=== PATIENT | female | born 1975 | race Two or more races ===

== ENCOUNTER 2020-11-09 20:04 | Emergency (ER) | payer MEDICAID ==
[~2020-11-09] VITALS: Ht 165.1 cm; Wt 49.0 kg
--- NOTE | 2020-11-09 20:21 | NUR ---
ED Nurse Note: pt presents to ED c/o abd pain, pt has an old surgical site from lipoma and abscess removal at [facility] in september. pt was recommended to come from her PCP office due to no improvement of pain and increased edema upon evaluation. pt has been taking Bactrim without improvement of symptoms. LUQ abd dressing appears to be soiled with puss and blood. packing removed by ERMD and replaced with new iodoform dressing. pt reports taking ibuprofen for painm without much relief
[2020-11-09 20:30] VITALS: BP 106/56
[2020-11-09] MEDS ORDERED: cefTRIAXone 1 GM in NS 55 ML IVPB ONE (20:30)
--- NOTE | 2020-11-09 20:32 | Emergency Room Report ---
History of Present Illness General Chief Complaint: Abdominal Pain Source: Patient Present Illness HPI Patient is a 45-year-old female who presents for increased abdominal discomfort. Had recent surgical procedure for a lipoma at [facility] approximately 09/29 denies any vomiting or diarrhea. Had been recently taking Bactrim. Had recent open the wound with her doctor.Was noted to have increased area after wound was opened at recently yesterday. Denies any fever. Allergies: Coded Allergies: MORPHINE (Verified Allergy, Unknown, 11/09/20) COVID-19 Screening Contact w/high risk pt: No Experienced COVID-19 symptoms?: No COVID-19 Testing performed [employer]: Yes - 11/01/2020 COVID-19 Screening: Negative COVID-19 COVID-19 Testing Source: [facility] Patient History Past Medical History: see triage record Last Menstrual Period: october 04 2020 Reviewed Nursing Documentation: PMH: Agreed; PSxH: Agreed Nursing Documentation-[facility] Past Medical History: No Stated History Review of Systems All Other Systems: negative except mentioned in HPI Physical Exam Vital Signs Date Time Temp Pulse Resp B/P (MAP) Pulse Ox O2 Delivery O2 Flow Rate FiO2 11/09/20 20:04 97.7 79 18 106/56 (73) 96 Room Air Sp02 EP Interpretation: reviewed, normal General Appearance: normal inspection, well appearing, no apparent distress, alert, GCS 15 Head: atraumatic ENT: normal ENT inspection, hearing grossly normal, normal voice Neck: normal inspection, full range of motion, supple, no bony tend Respiratory: normal inspection, lungs clear, normal breath sounds, no respiratory distress, no retraction, no wheezing Cardiovascular #1: regular rate, rhythm, no edema Gastrointestinal: normal inspection, normal bowel sounds, non tender, soft, no guarding, no hernia Genitourinary: no CVA tenderness Musculoskeletal: normal inspection, back normal, normal range of motion Neurologic: alert, motor strength/tone normal, steam flattener III-XII nml as tested, oriented x3, responsive, speech normal, normal inspection Psychiatric: normal inspection, judgement/insight normal, mood/affect normal Skin: other - Erythema to the left lower abdomen near incision Medical Decision Making Diagnostic Impression: Primary Impression: Postoperative wound cellulitis ER Course Patient presented for abdominal pain. Differential diagnosis include was not limited to abscess, ulcer, bowel obstruction, wound infection among others. Because of complexity of patient's case laboratory tests and imaging studies were ordered. Patient was noted to have some erythema to the area of the wound which overall appears to be Minimally tender and somewhat itchy. Patient was packing was removed and changed. CT imaging showed changes consistent with patient's postoperative status as well as some abdominal wall cellulitis. Patient was given IV antibiotics in the emergency department. She was noted to have normal white blood count with no evidence of sepsis. Patient was given prescription for additional antibiotics and advised to follow-up with her surgeon. Patient was agreeable with discharge plan. The patient is advised to follow up with primary care doctor in 1-2 days. Patient is advised to return if any worsening condition or if any changes in status that are concerning. This report is dictated with [employer] filling [employer] software which may occasionally lead to discrepancies related to use of this software. Last Vital Signs Date Time Temp Pulse Resp B/P (MAP) Pulse Ox O2 Delivery O2 Flow Rate FiO2 11/09/20 20:04 97.7 79 18 106/56 (73) 96 Room Air Status: improved Disposition: HOME, SELF-CARE Scripts Hydrocodone Bit/Acetaminophen 5-325* (NORCO 5-325 TABLET*) 1 Each Tablet 1 TAB ORAL Q6H PRN for FOR PAIN, #10 TAB 0 Refills Prov: Saul Bhatia MD 11/09/20 Cephalexin* (KEFLEX*) 500 Mg Capsule 500 MG ORAL EVERY 6 HOURS, #40 CAP Prov: Saul Bhatia MD 11/09/20 Saul Bhatia MD Nov 09, 2020 20:32
[2020-11-09 21:05] LABS: APPEARANCE,URINE CLEAR; BASOPHILS % (AUTO) 1.2 % (0.0-2.0); BILIRUBIN, URINE NEGATIVE (NEGATIVE); COLOR,URINE YELLOW; EOSINOPHILS % (AUTO) 6.2 % (0.0-3.0); GLUCOSE, URINE (UA) NEGATIVE (NEGATIVE); HEMATOCRIT 36.5 % (37.0-47.0); HEMOGLOBIN 12.9 G/DL (12.0-16.0); KETONES,URINE NEGATIVE (NEGATIVE); LEUKOCYTE ESTERASE ,URINE NEGATIVE (NEGATIVE); LYMPHOCYTES % (AUTO) 27.5 % (20.0-45.0); MEAN CORPUSCULAR VOLUME 91 FL (80-99); MONOCYTES % (AUTO) 7.6 % (1.0-10.0); NEUTROPHILS % (AUTO) 57.5 % (45.0-75.0); NITRITE,URINE NEGATIVE (NEGATIVE); PH,URINE 6 (4.5-8.0); PLATELET COUNT 240 K/UL (150-450); PROTEIN,URINE NEGATIVE (NEGATIVE); RED BLOOD COUNT 3.99 M/UL (4.20-5.40); RED CELL DISTRIBUTION WIDTH 12.5 % (11.6-14.8); UROBILINOGEN,URINE NORMAL MG/DL (0.0-1.0)
[2020-11-09 21:14] LABS: ANION GAP 8 mmol/L (5-15); BLOOD UREA NITROGEN 11 mg/dL (7-18); CALCIUM 8.4 MG/DL (8.5-10.1); CARBON DIOXIDE 25 MMOL/L (21-32); CHLORIDE 106 MMOL/L (98-107); CREATININE 0.6 MG/DL (0.55-1.30); POTASSIUM 3.9 MMOL/L (3.5-5.1); SODIUM 139 MMOL/L (136-145)
[2020-11-09] MEDS ORDERED: Omnipaque-300 100ml vial INJ PRN (21:15)
[2020-11-09 21:18] LABS: ALANINE AMINOTRANSFERASE 27 U/L (12-78); ALBUMIN 3.8 G/DL (3.4-5.0); ALBUMIN/GLOBULIN RATIO 1.3 (1.0-2.7); ALKALINE PHOSPHATASE 87 U/L (46-116); ASPARTATE AMINO TRANSFERASE 17 U/L (15-37); BILIRUBIN,TOTAL 0.2 MG/DL (0.2-1.0)
--- NOTE | 2020-11-09 22:18 | Diagnostic Imaging Report ---
EXAM: CT Abdomen and Pelvis With Intravenous Contrast CLINICAL HISTORY: PAIN TECHNIQUE: Axial computed tomography images of the abdomen and pelvis with intravenous contrast. CTDI is 4.8 mGy and DLP is 267.9 mGy-cm. One or more of the following dose reduction techniques were used: automated exposure control, adjustment of the mA and/or kV according to patient size, use of iterative reconstruction technique. COMPARISON: No relevant prior studies available. FINDINGS: Lung bases: Unremarkable. ABDOMEN: Liver: Unremarkable. Gallbladder and bile ducts: Unremarkable. Pancreas: Unremarkable. Spleen: Unremarkable. Adrenals: Unremarkable. Kidneys and ureters: Fullness within the right renal pelvis with respect to the left. No perinephric inflammatory changes. No renal or ureteral stones. Stomach and bowel: Unremarkable. PELVIS: Appendix: No findings to suggest acute appendicitis. Bladder: Unremarkable. Reproductive: Unremarkable as visualized. ABDOMEN and PELVIS: Intraperitoneal space: Unremarkable. No free air. No significant fluid collection. Bones/joints: No acute fracture. Soft tissues: Collection containing gas and what appears to be packing material subjacent to the skin surface in the left upper quadrant with an apparent open drainage tract and surrounding skin thickening suggestive of cellulitis. Vasculature: Unremarkable. Lymph nodes: Unremarkable. IMPRESSION: Collection containing gas and what appears to be packing material subjacent to the skin surface in the left upper quadrant with an open drainage tract and surrounding skin thickening suggestive of cellulitis.
[2020-11-09] MEDS ORDERED: NORCO 5-325 TA1 EAC1 ORAL (22:22)
[2020-11-09] MEDS ORDERED: CEPHALEXIN500 MG ORAL (22:22)
[2020-11-09 22:35] VITALS: BP 106/56
--- NOTE | 2020-11-09 22:35 | NUR ---
ER DISCHARGE NOTE: Patient is cleared to be discharged per ERMD, pt is aox4, on room air, with stable vital signs. pt was given dc and prescription instructions, pt was able to verbalize understanding, pt id band and iv site removed without complications. pt is able to ambulate with steady gait. pt took all belongings.
== END 2020-11-09 22:35 | disposition home or self-care (01) ==
LOC: EMR 20:20
DX: T81.40XA Infection following a procedure, unspecified, initial encounter (principal); L03.311 Cellulitis of abdominal wall; Z88.5 Allergy status to narcotic agent
CPT/HCPCS: 36415; 74177; 80053; 81003; 81025; 83690; 84484; 85025; 85610; 85730; 86850; 86900; 86901; 87086; 96361; 96365; J0696; J7030; Q9965; Z7502; 99284